=== PATIENT | female | born 1945 | race Two or more races ===

== ENCOUNTER 2023-09-04 09:36 | Inpatient (IN) | payer OTHER ==
[2023-09-04 09:44] VITALS: BMI 21.9
[2023-09-04 11:04] LABS: BASO % 0.4 % (0-2.0); HEMATOCRIT 34.2 % (32.4-45.2); HEMOGLOBIN 11.8 GM/dL (10.7-15.3); LYMPH % 14.6 % (8-40); MCH 32.2 pg (25.7-33.7); MCHC 34.5 g/dl (32.0-36.0); MEAN CELL VOLUME 93.3 fl (80-96); MEAN PLT VOLUME 6.7 fl (7.5-11.1); MONO % 8.5 % (3.8-10.2); NEUT % 75.5 % (42.8-82.8); PLATELET COUNT 206 10^3/uL (134-434); RBC 3.67 M/mm3 (3.60-5.2); RDW 13.4 % (11.6-15.6); WHITE BLOOD COUNT 6.3 K/mm3 (4.0-10.0)
[2023-09-04 11:54] LABS: POTASSIUM 4.2 mmol/L (3.5-5.1)
[2023-09-04 12:00] LABS: CALCIUM 9.1 mg/dL (8.5-10.1)
[2023-09-04 12:01] LABS: ALBUMIN 3.8 g/dl (3.4-5.0); BLOOD UREA NITROGEN 6.7 mg/dL (7-18)
[2023-09-04 12:06] LABS: BILIRUBIN,TOTAL 0.6 mg/dL (0.2-1); TOT PROT 6.8 g/dl (6.4-8.2)
[2023-09-04] MEDS: SODIUM CHLORIDE 0.9% 500 ML INFUS.BAG IV ONE (12:47)
[2023-09-04 13:11] LABS: PH,URINE 7.5 (5.0-8.0); URINE APPEARANCE Error; URINE BILIRUBIN NEGATIVE (NEGATIVE); URINE COLOR YELLOW; URINE GLUCOSE (UA) 2+ (NEGATIVE); URINE KETONE NEGATIVE (NEGATIVE); URINE LEUK ESTERASE NEGATIVE (NEGATIVE); URINE NITRITE NEGATIVE (NEGATIVE); URINE PROTEIN NEGATIVE (NEGATIVE); URINE UROBILINOGEN 0.2 mg/dL (0.2-1.0)
[2023-09-04] MEDS ORDERED: CARBIDOPA/LEVODOPA 25/250 TABLET (FP) ONE (13:17)
[2023-09-04] MEDS: CARBIDOPA/LEVODOPA 25/250 TABLET (FP) PO ONE (13:28)
[2023-09-04] MEDS: CARBIDOPA/LEVODOPA 25/250 TABLET (FP) PO SCH (19:13)
[2023-09-04] MEDS: SODIUM CHLORIDE 1,000 ML IV SCH (21:19)
[2023-09-04] MEDS: HEPARIN NA (PORCINE) 5,000 UNITS/ML 1ML VIAL SQ SCH (21:20)
[2023-09-05 09:05] LABS: BASO % 0.7 % (0-2.0); EOS % 1.6 % (0-4.5); HEMATOCRIT 37.2 % (32.4-45.2); HEMOGLOBIN 12.6 GM/dL (10.7-15.3); LYMPH % 17.5 % (8-40); MCH 31.8 pg (25.7-33.7); MCHC 33.9 g/dl (32.0-36.0); MEAN CELL VOLUME 93.9 fl (80-96); MEAN PLT VOLUME 7.3 fl (7.5-11.1); MONO % 8.3 % (3.8-10.2); NEUT % 71.9 % (42.8-82.8); PLATELET COUNT 228 10^3/uL (134-434); RBC 3.96 M/mm3 (3.60-5.2); RDW 13.3 % (11.6-15.6)
[2023-09-05 09:28] LABS: CALCIUM 9.4 mg/dL (8.5-10.1)
[2023-09-05 09:29] LABS: MAGNESIUM 2.6 mg/dL (1.8-2.4)
[2023-09-05 09:32] LABS: CREATININE 0.8 mg/dL (0.55-1.3)
[2023-09-05 09:33] LABS: BILIRUBIN,TOTAL 0.7 mg/dL (0.2-1)
[2023-09-05 09:34] LABS: TOT PROT 7.2 g/dl (6.4-8.2)
[2023-09-05 10:48] LABS: EPI CELLS 3 /uL (0-25.1); HYALINE CASTS 0 /uL (0-3.1); PH,URINE 7.5 (5.0-8.0); URINE APPEARANCE CLEAR; URINE BACTERIA 7 /uL (0-1359); URINE BILIRUBIN NEGATIVE (NEGATIVE); URINE COLOR YELLOW; URINE GLUCOSE (UA) 2+ (NEGATIVE); URINE KETONE NEGATIVE (NEGATIVE); URINE LEUK ESTERASE NEGATIVE (NEGATIVE); URINE NITRITE NEGATIVE (NEGATIVE); URINE PROTEIN NEGATIVE (NEGATIVE); URINE RBC 33 /uL (0-23.9); URINE UROBILINOGEN 0.2 mg/dL (0.2-1.0); URINE WBC 2 /uL (0-25.8)
[2023-09-06 09:13] LABS: POTASSIUM 4.1 mmol/L (3.5-5.1)
[2023-09-06 09:18] LABS: CALCIUM 9.8 mg/dL (8.5-10.1); MAGNESIUM 2.4 mg/dL (1.8-2.4)
[2023-09-06 09:22] LABS: BLOOD UREA NITROGEN 9.1 mg/dL (7-18); CREATININE 0.9 mg/dL (0.55-1.3)
[2023-09-06] MEDS ORDERED: ARTIFICIAL TEARS OPHTHALMIC DROPS OU PRN (09:28)
[2023-09-06] MEDS ORDERED: ALBUTEROL SO4 0.042% IH SOL 1.25 MG/3 ML VIAL.NEB NEB PRN (09:28)
[2023-09-06] MEDS ORDERED: ESCITALOPRAM OXALATE 10 MG TABLET ONE (10:26)
[2023-09-06] MEDS: METOPROLOL TARTRATE 25 MG TABLET (FP) PO SCH (10:39)
[2023-09-06] MEDS: amLODIPine BESYLATE 2.5 MG TABLET (FP) PO SCH (10:39)
[2023-09-06] MEDS: ASPIRIN COATED 81 MG TABLET.EC PO SCH (10:39)
[2023-09-06] MEDS: SODIUM CHLORIDE 1,000 ML IV SCH (10:40)
[2023-09-06] MEDS: BUDESONIDE/FORMETEROL FUMARATE 80/4.5 mcg INHALER IH SCH (10:41)
[2023-09-06] MEDS: ESCITALOPRAM OXALATE 20 MG TABLET PO SCH (11:17)
[2023-09-06] MEDS: INSULIN ASPART SLIDING SCALE (NOVOLOG) 1 VIAL SQ SCH (11:37)
[2023-09-06 15:34] VITALS: RESP 18
[2023-09-06] MEDS: CARBIDOPA/LEVODOPA 25/250 TABLET (FP) PO SCH (18:40)
[2023-09-06] MEDS: ATORVASTATIN CA 20 MG TABLET (FP) PO SCH (21:41)
[2023-09-07] MEDS: LEVOTHYROXINE NA 50 MCG TABLET (FP) PO SCH (06:18)
[2023-09-07 09:07] LABS: POTASSIUM 4.2 mmol/L (3.5-5.1)
[2023-09-07 09:11] LABS: CALCIUM 9.5 mg/dL (8.5-10.1)
[2023-09-07 09:12] LABS: ALBUMIN 3.7 g/dl (3.4-5.0); BLOOD UREA NITROGEN 10.4 mg/dL (7-18)
[2023-09-07 09:15] LABS: CREATININE 0.9 mg/dL (0.55-1.3)
[2023-09-07 09:16] LABS: TOT PROT 6.8 g/dl (6.4-8.2)
[2023-09-07 09:17] LABS: BILIRUBIN,TOTAL 0.7 mg/dL (0.2-1)
[2023-09-07] MEDS: ESCITALOPRAM OXALATE 10 MG TABLET PO SCH (09:19)
[2023-09-07 14:20] VITALS: BP 134/68; PULSE 77; TEMP 98.1
== END 2023-09-07 14:47 | disposition home or self-care (01) | DRG 641 ==
LOC: JER 09:36 → JERBED 12:25 → OBSVTOIN 17:08 → J8W 18:18
PROVIDERS: ADMIT Family Medicine; ATTEND Family Medicine
DX: E87.1 Hypo-osmolality and hyponatremia (principal); I10 Essential (primary) hypertension; E78.5 Hyperlipidemia, unspecified; E03.9 Hypothyroidism, unspecified; G20.A1 Parkinson's disease without dyskinesia, without mention of fluctuations
CPT/HCPCS: 36415; 80048; 80053; 81003; 82436; 82533; 82962; 83036; 83735; 83930; 83935; 84133; 84300; 84436; 84443; 85025; 86850; 86900; 86901; 87086; 93005; 93010; 99285-25; G0378; J1644

== ENCOUNTER 2024-07-25 18:46 | Inpatient (IN) | payer OTHER ==
[2024-07-25] MEDS ORDERED: ACETAMINOPHEN INJECTION 100 ML ONE (20:17)
[2024-07-25 21:10] LABS: BASO % 0.1 % (0-2.0); EOS % 0.1 % (0-4.5); HEMATOCRIT 32.4 % (32.4-45.2); HEMOGLOBIN 10.9 GM/dL (10.7-15.3); LYMPH % 10.1 % (8-40); MCH 30.7 pg (25.7-33.7); MCHC 33.6 g/dl (32.0-36.0); MEAN CELL VOLUME 91.5 fl (80-96); MEAN PLT VOLUME 6.9 fl (7.5-11.1); NEUT % 84.7 % (42.8-82.8); PLATELET COUNT 231 10^3/uL (134-434); RBC 3.54 M/mm3 (3.60-5.2); RDW 13.1 % (11.6-15.6); WHITE BLOOD COUNT 3.2 K/mm3 (4.0-10.0)
[2024-07-25 21:15] LABS: VENOUS BASE EXCESS 0.5 mmol/L (-2-2); VENOUS O2 SATURATION 95.6 % (70-80); VENOUS PCO2 32.4 mmHg (38-52); VENOUS PH 7.478 (7.310-7.410)
[2024-07-25] MEDS: ACETAMINOPHEN 1000 MG/100 ML BAG IVPB ONE (21:16)
[2024-07-25] MEDS: SODIUM CHLORIDE 1,000 ML IV STA (21:16)
[2024-07-25 21:24] LABS: INR 1.23 (0.83-1.09); PROTHROMBIN TIME (PATIENT) 13.5 SEC (9.7-13.0)
[2024-07-25 21:27] LABS: ACTIVATED PTT 28.1 SECONDS (25.2-36.5)
[2024-07-25 21:44] LABS: POTASSIUM 3.8 mmol/L (3.5-5.1)
[2024-07-25 21:47] LABS: BLOOD UREA NITROGEN 20.2 mg/dL (7-18); CALCIUM 8.8 mg/dL (8.5-10.1)
[2024-07-25 21:51] LABS: CREATININE 0.9 mg/dL (0.55-1.3)
[2024-07-25 23:10] LABS: EPI CELLS 18 /uL (0-25.1); HYALINE CASTS 1 /uL (0-3.1); PH,URINE 6.5 (5.0-8.0); URINE APPEARANCE CLEAR; URINE BACTERIA 166 /uL (0-1359); URINE BILIRUBIN NEGATIVE (NEGATIVE); URINE COLOR YELLOW; URINE GLUCOSE (UA) 2+ (NEGATIVE); URINE KETONE 1+ (NEGATIVE); URINE LEUK ESTERASE 1+ (NEGATIVE); URINE NITRITE NEGATIVE (NEGATIVE); URINE PROTEIN 2+ (NEGATIVE); URINE WBC 138 /uL (0-25.8)
[2024-07-25] MEDS ORDERED: CARBIDOPA/LEVODOPA 25/100 TABLET (FP) ONE (23:24)
[2024-07-25 23:38] LABS: URINE RBC 122.4 /uL (0-23.9)
[2024-07-26 02:59] LABS: POTASSIUM 4.3 mmol/L (3.5-5.1)
[2024-07-26 03:01] LABS: BLOOD UREA NITROGEN 15.6 mg/dL (7-18); CALCIUM 8.3 mg/dL (8.5-10.1)
[2024-07-26 03:05] LABS: CREATININE 0.8 mg/dL (0.55-1.3)
[2024-07-26] MEDS ORDERED: CEFTRIAXONE 1 G/50 ML PREMIX 50 ML IVPB ONE (03:13)
[2024-07-26] MEDS: SODIUM CHLORIDE 0.9% 500 ML INFUS.BAG IV ONE (03:40)
[2024-07-26] MEDS: CEFTRIAXONE 1 GM in DEXTROSE 5%-WATER - 50 ML IVPB ONE (03:40)
[2024-07-26] MEDS ORDERED: ALBUTEROL SO4 0.5 % INH SOLN 2.5 MG/0.5 ML VIAL.NEB. NEB PRN (04:43)
[2024-07-26] MEDS ORDERED: sitaGLIPtin PHOSPHATE 50 MG TABLET ONE (06:10)
[2024-07-26] MEDS ORDERED: LEVOTHYROXINE NA 50 MCG TABLET (FP) ONE (06:11)
[2024-07-26 06:15] LABS: BASO % 0.3 % (0-2.0); EOS % 0.1 % (0-4.5); HEMATOCRIT 28.6 % (32.4-45.2); HEMOGLOBIN 9.5 GM/dL (10.7-15.3); LYMPH % 8.5 % (8-40); MCH 30.5 pg (25.7-33.7); MCHC 33.1 g/dl (32.0-36.0); MEAN CELL VOLUME 92.1 fl (80-96); MEAN PLT VOLUME 7.1 fl (7.5-11.1); MONO % 3.9 % (3.8-10.2); NEUT % 87.2 % (42.8-82.8); PLATELET COUNT 224 10^3/uL (134-434); RBC 3.11 M/mm3 (3.60-5.2); RDW 13.4 % (11.6-15.6); WHITE BLOOD COUNT 8.7 K/mm3 (4.0-10.0)
[2024-07-26] MEDS: LEVOTHYROXINE NA 50 MCG TABLET (FP) PO SCH (06:20)
[2024-07-26 06:43] LABS: CHLORIDE 96 mmol/L (98-107); POTASSIUM 4.2 mmol/L (3.5-5.1); SODIUM 129 mmol/L (136-145)
[2024-07-26 06:45] LABS: CALCIUM 7.9 mg/dL (8.5-10.1)
[2024-07-26 06:46] LABS: ALBUMIN 2.5 g/dl (3.4-5.0); ANION GAP 7 mmol/L (4-13); BLOOD UREA NITROGEN 12.6 mg/dL (7-18); CO2 25 mmol/L (21-32); GLUCOSE,RANDOM 215 mg/dL (74-106); MAGNESIUM 1.6 mg/dL (1.8-2.4)
[2024-07-26 06:49] LABS: CREATININE 0.9 mg/dL (0.55-1.3); SGOT/AST 11 U/L (15-37); SGPT/ALT < 6 U/L (13-61)
[2024-07-26 06:50] LABS: BILIRUBIN,TOTAL 0.7 mg/dL (0.2-1)
[2024-07-26 06:51] LABS: TOT PROT 5.4 g/dl (6.4-8.2)
[2024-07-26 06:52] LABS: ALK PHOS 93 U/L (45-117)
[2024-07-26] MEDS ORDERED: CARBIDOPA/LEVODOPA 25/250 TABLET (FP) ONE (08:03)
[2024-07-26] MEDS: SODIUM CHLORIDE 1,000 ML IV SCH (08:27)
[2024-07-26] MEDS: CARBIDOPA/LEVODOPA 25/250 TABLET (FP) PO SCH (08:27)
[2024-07-26] MEDS: CYANOCOBALAMIN 1,000 MCG TABLET (FP) PO SCH (11:20)
[2024-07-26] MEDS: PRAMIPEXOLE DIHYDROCHLORIDE 1 MG TABLET PO SCH (11:20)
[2024-07-26] MEDS: ASPIRIN 81 MG CHEWABLE TABLETS PO SCH (11:20)
[2024-07-26 15:00] VITALS: RESP 18
[2024-07-26] MEDS: ESCITALOPRAM OXALATE 20 MG TABLET PO SCH (18:39)
[2024-07-26] MEDS: ACETAMINOPHEN 325 MG TABLET (FP) PO PRN (18:39)
[2024-07-26] MEDS: MAGNESIUM 2GM/50ML STERILE WATER IVPB IVPB ONE (19:02)
[2024-07-26] MEDS: ATORVASTATIN CA 10 MG TABLET (FP) PO SCH (22:34)
[2024-07-26] MEDS: LATANOPROST 0.005% OPHTH SOLN 2.5ML BOTTLE OU SCH (22:40)
[2024-07-27] MEDS: ACETAMINOPHEN 1000 MG/100 ML BAG IVPB ONE (04:21)
[2024-07-27 09:38] LABS: HEMATOCRIT 29.5 % (32.4-45.2); HEMOGLOBIN 9.6 GM/dL (10.7-15.3); MCHC 32.6 g/dl (32.0-36.0); MEAN PLT VOLUME 7.5 fl (7.5-11.1); PLATELET COUNT 258 10^3/uL (134-434); RBC 3.21 M/mm3 (3.60-5.2); RDW 13.1 % (11.6-15.6); WHITE BLOOD COUNT 14.9 K/mm3 (4.0-10.0)
[2024-07-27 09:50] LABS: POTASSIUM 3.7 mmol/L (3.5-5.1)
[2024-07-27 09:54] LABS: CALCIUM 8.9 mg/dL (8.5-10.1)
[2024-07-27 09:55] LABS: BLOOD UREA NITROGEN 14.6 mg/dL (7-18)
[2024-07-27 09:58] LABS: CREATININE 0.8 mg/dL (0.55-1.3)
[2024-07-27] MEDS: CEFTRIAXONE 1 G/50 ML PREMIX 50 ML IVPB SCH (10:52)
[2024-07-27 11:25] LABS: ANISOCYTOSIS 1+; MACROCYTOSIS 0
[2024-07-27 15:58] VITALS: BMI 20.8
[2024-07-27] MEDS: IRON SUCROSE INJECTION 200 MG in SODIUM CHLORIDE 100 ML IVPB SCH (17:27)
[2024-07-27] MEDS: ACETAMINOPHEN 325 MG TABLET (FP) PO ONE (20:34)
[2024-07-28 10:13] LABS: BLOOD UREA NITROGEN 15.6 mg/dL (7-18); CALCIUM 8.4 mg/dL (8.5-10.1)
[2024-07-28 10:16] LABS: CREATININE 0.8 mg/dL (0.55-1.3)
[2024-07-28] MEDS: METOPROLOL TARTRATE 25 MG TABLET (FP) PO SCH (12:24)
[2024-07-28 14:03] VITALS: BP 108/57; PULSE 60; TEMP 98.6
== END 2024-07-28 15:39 | disposition home or self-care (01) | DRG 641 ==
LOC: JER 18:46 → JERBED 07-26 03:05 → J8W 07-26 08:59
PROVIDERS: ADMIT Student in an Organized Health Care Education/Training Program; ATTEND Family Medicine
DX: E87.1 Hypo-osmolality and hyponatremia (principal); G20.A1 Parkinson's disease without dyskinesia, without mention of fluctuations; I10 Essential (primary) hypertension; E78.5 Hyperlipidemia, unspecified; E03.9 Hypothyroidism, unspecified; E11.9 Type 2 diabetes mellitus without complications
CPT/HCPCS: 0241U-QW; 36415; 70450-TC; 71045-TC-FY; 80048; 80053; 81003; 82728; 82803; 82962; 83036; 83540; 83550; 83605; 83735; 83930; 83935; 84300; 84443; 84466; 84484; 85025; 85610; 85730; 86850; 86900; 86901; 87040; 87086; 93005; 93010; 97116-GP; 97161-GP; 99285-25; J0131; J1756